=== PATIENT | male | born 2000 ===

== ENCOUNTER 2021-09-22 06:24 | Emergency (ER) | payer SELFPAY ==
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
[2021-09-22] MEDS ORDERED: TETANUS,DIPHTHERIA TOXOID ADULT 0.5 ML INJ IM ONE (07:31)
[2021-09-22] MEDS ORDERED: HYDROcodone/ACETAMINOPHEN 5-325 MG TAB PO ONE (07:40)
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
[2021-09-22] MEDS ORDERED: MORPHINE 2 MG/1 ML INJ IV ONE (07:56)
[2021-09-22] MEDS ORDERED: ONDANSETRON 4 MG/2 ML INJ IV ONE (07:57)
[2021-09-22 10:17] VITALS: BP 128/81
== END 2021-09-22 10:19 | disposition home or self-care (01) ==
LOC: ED 06:24
DX: S61.432A Puncture wound without foreign body of left hand, initial encounter (principal); W34.09XA Accidental discharge from other specified firearms, initial encounter; Y93.89 Activity, other specified; Y92.89 Other specified places as the place of occurrence of the external cause; Y99.8 Other external cause status
CPT/HCPCS: 73130; 90471; 90714; 96374; 96375; 99283; J0690; 96372